=== PATIENT | male | born 1960 | race Caucasian/White ===

== ENCOUNTER 2021-12-09 04:04 | Day surgery (SDCO) | payer MEDICARE ==
[~2021-12-09] VITALS: Ht 180.3 cm; Wt 108.9 kg
[~2021-12-09 04:04] MED LIST: AMIODARONE HCL200 MG PO; ANORO ELLIPTA1 EACH INH; ASPIRIN CHEWABL81 MG PO; ATORVASTATIN PO; BUMEX1 MG PO; CARTIA XT120 MG PO; CHOLESTYRAMINE P4 GM PO; COLESTID1 GM PO; COMBIVENT RESPIM4 GM INH; COREG 6.25MG6.25 MG PO; COZAAR 25MG TAB25 MG PO; CYANOCOBAL1000 MCG/1 IM; DUONEB 2.5-0.5M1 AMP NEB; ELIQUIS5 MG PO; FEOSOL325 MG PO; FOLIC ACID1 MG PO; HYDROXYZINE PA100 MG PO; IBUPROFEN400 MG PO; LEVAQUIN500 MG PO; LOPRESSOR25 MG PO; MAGNESIUM250 M1 PO; METFORMIN HCL500 MG PO; MUCINEX 600MG600 MG PO; NAPROSYN250 MG PO; NEURONTIN300 MG PO; OXY-IR 5MG5 MG PO; PENTOXIFYLLINE400 MG PO; PREDNISONE5 MG PO; PROTONIX 40MG T40 MG PO; ROBITUSSIN W/COD5 ML PO; SENOKOT-S TABL1 EACH PO; SPIRIVA18 MCG PO; UROCIT-K10 MEQ PO; VITAMIN D350 MC3 PO; XARELTO20 MG PO; ZAROXOLYN2.5 MG PO; ZYRTEC10 M3 PO
[2021-12-09 04:30] LABS: BASOPHIL 0.8 % (0-2); EOSINOPHIL 4.4 % (0-5); HCT 35.7 % (42.0-52.0); HGB 11.6 g/dl (13.2-18.0); LYMPHOCYTE 23.9 % (15-48); MCH 31.4 pg (25.0-31.0); MCHC 32.5 g/dL (32.0-36.0); MCV 96.7 fL (78.0-100.0); MONOCYTE 6.3 % (0-12); MPV 11.9 fL (6.0-9.5); NEUTROPHIL 64.2 % (41-80); NRBC 0; PLT 189 K/uL (150-400); RBC 3.69 M/uL (4.70-6.00); RDW 13.9 % (11.5-14.0)
[2021-12-09 05:00] LABS: BUN/CREAT RATIO (CALC) 17.8 RATIO; CREATININE 0.73 mg/dL (0.67-1.17); POTASSIUM 3.6 mmol/L (3.5-5.1)
[2021-12-09 05:05] LABS: CORONAVIRUS 2019 SARS-COV-2 NEGATIVE (NEGATIVE); INFLUENZA A NAA NEGATIVE (NEGATIVE)
[2021-12-09] MEDS ORDERED: VENTOLIN HFA IN18 GM INH (14:39)
--- NOTE | 2021-12-10 05:24 | NUR ---
ONE TIME ORDERS NOT GIVEN DUE TO ADMINISTRATION TIMES AND NEXT SCHEDULED , [facility] NOTIFIED.
[2021-12-10 06:23] LABS: BASOPHIL 0.8 % (0-2); EOSINOPHIL 2.6 % (0-5); HCT 33.4 % (42.0-52.0); HGB 10.8 g/dl (13.2-18.0); LYMPHOCYTE 16.4 % (15-48); MCH 31.4 pg (25.0-31.0); MCHC 32.3 g/dL (32.0-36.0); MCV 97.1 fL (78.0-100.0); MONOCYTE 8.1 % (0-12); NEUTROPHIL 71.7 % (41-80); NRBC 0; PLT 163 K/uL (150-400); RBC 3.44 M/uL (4.70-6.00); RDW 14.1 % (11.5-14.0); WBC 9.5 K/uL (4.0-10.5)
[2021-12-10 06:26] LABS: INR 1.18 (0.9-1.2); PROTHROMBIN TIME 14.4 SECONDS (11.8-13.4)
[2021-12-10 06:50] LABS: BUN/CREAT RATIO (CALC) 13.5 RATIO; CREATININE 0.74 mg/dL (0.67-1.17); POTASSIUM 3.9 mmol/L (3.5-5.1)
[2021-12-10] MEDS ORDERED: LIPITOR40 MG PO (15:24)
[2021-12-10] MEDS ORDERED: LOMOTIL1 EACH PO (15:25)
[2021-12-10] MEDS ORDERED: FEOSOL325 MG PO (15:26)
[2021-12-11 05:53] LABS: BASOPHIL 1.1 % (0-2); EOSINOPHIL 3.2 % (0-5); HCT 34.8 % (42.0-52.0); HGB 11.2 g/dl (13.2-18.0); LYMPHOCYTE 20.7 % (15-48); MCH 31.1 pg (25.0-31.0); MCHC 32.2 g/dL (32.0-36.0); MCV 96.7 fL (78.0-100.0); MONOCYTE 8.9 % (0-12); MPV 11.9 fL (6.0-9.5); NEUTROPHIL 65.6 % (41-80); NRBC 0; PLT 165 K/uL (150-400); RDW 13.9 % (11.5-14.0); WBC 9.4 K/uL (4.0-10.5)
[2021-12-11 08:05] LABS: BUN/CREAT RATIO (CALC) 14.7 RATIO; CREATININE 0.75 mg/dL (0.67-1.17); POTASSIUM 3.5 mmol/L (3.5-5.1)
--- NOTE | 2021-12-11 13:58 | NUR ---
12/11/21 Mr. Duff lives alone. He has 4 children who visit the home. He does not use any DME. [facility] ([phone]) is providing IV Vancy 1.5 gram Q 12 hours, last dose due 01/14/22. [facility] is current and were notified of admission. Please notify [facility] and [facility] if patient discharges over the weekend, [phone].
--- NOTE | 2021-12-11 21:25 | NUR ---
PATIENT STATED THAT HE HAS NOT RECIEVED ALL OF HIS HOME MEDICATIONS. STATED HE TYPICALLY TAKES 16 OR 17 PILLS IN THE AM AND HAS ONLY RECIEVED 7 IN THE MORNINGS. STATED THAT HE OFFERED TO BRING HIS MEDICATIONS IN AND THE NURSES HAVE STATED IT WOULD BE LIKE JUMPING THROUGH HOOPS TO USE THEM. NURSE EDUCATED THE PATIENT ON THE PROCESS OF BRINGING HOME MEDICATIONS. ESCALATED THE ISSUE TO HIS NURSE ON [facility] [place] TO ADDRESS THIS WITH THE [facility]. PATIENT STATED HE BROUGHT IN A LIST OF HIS HOME MEDICATIONS AND THE NURSE REPORTED TO HIM THAT SHE PUT HIS HOME MEDICATIONS IN THE MED REC TAB.
[2021-12-12 05:41] LABS: BASOPHIL 1.2 % (0-2); HCT 36.2 % (42.0-52.0); HGB 11.8 g/dl (13.2-18.0); LYMPHOCYTE 23.4 % (15-48); MCH 31.2 pg (25.0-31.0); MCHC 32.6 g/dL (32.0-36.0); MCV 95.8 fL (78.0-100.0); MONOCYTE 10.7 % (0-12); MPV 11.5 fL (6.0-9.5); NEUTROPHIL 60.2 % (41-80); NRBC 0; PLT 171 K/uL (150-400); RBC 3.78 M/uL (4.70-6.00); RDW 13.9 % (11.5-14.0); WBC 7.6 K/uL (4.0-10.5)
[2021-12-12 06:05] LABS: CREATININE 0.89 mg/dL (0.67-1.17); MAGNESIUM 2.1 mg/dL (1.8-2.4); POTASSIUM 3.5 mmol/L (3.5-5.1)
[2021-12-12] MEDS ORDERED: BUMEX1 MG PO (15:10)
== END 2021-12-12 16:52 | disposition home health service (06) ==
LOC: FER 04:04 → FOFB 07:58 → FMS 07:58
PROVIDERS: Internal Medicine; Internal Medicine Cardiovascular Disease; Nurse Practitioner; ADMIT Internal Medicine
DX: J96.01 Acute respiratory failure with hypoxia (principal); I11.0 Hypertensive heart disease with heart failure; I50.33 Acute on chronic diastolic (congestive) heart failure; I27.20 Pulmonary hypertension, unspecified; I34.0 Nonrheumatic mitral (valve) insufficiency; L08.9 Local infection of the skin and subcutaneous tissue, unspecified; G47.33 Obstructive sleep apnea (adult) (pediatric); I48.0 Paroxysmal atrial fibrillation; J44.9 Chronic obstructive pulmonary disease, unspecified; E11.9 Type 2 diabetes mellitus without complications; C22.8 Malignant neoplasm of liver, primary, unspecified as to type; I25.10 Atherosclerotic heart disease of native coronary artery without angina pectoris; Z87.891 Personal history of nicotine dependence; Z95.1 Presence of aortocoronary bypass graft; Z88.0 Allergy status to penicillin; Z79.82 Long term (current) use of aspirin; Z79.01 Long term (current) use of anticoagulants; Z79.899 Other long term (current) drug therapy; Z20.822 Contact with and (suspected) exposure to COVID-19
CPT/HCPCS: 36415; 36600; 71045; 71046; 71275; 80048; 80061; 80202; 82803; 82962; 83735; 83880; 84145; 84484; 85025; 85610; 93005; 94640; 94664; G0378; J0456; J3370; J7040; J7050; Q9967; U0002

== ENCOUNTER 2022-03-10 10:55 | Emergency (ER) | payer MEDICARE ==
[~2022-03-10 10:55] MED LIST changes: +LIPITOR40 MG PO; +LOMOTIL1 EACH PO; +VENTOLIN HFA IN18 GM INH
[2022-03-10 13:34] LABS: BASOPHIL 1.1 % (0-2); EOSINOPHIL 2.1 % (0-5); HGB 12.4 g/dl (13.2-18.0); LYMPHOCYTE 23.9 % (15-48); MCH 30.6 pg (25.0-31.0); MCHC 32.6 g/dL (32.0-36.0); MCV 93.8 fL (78.0-100.0); MONOCYTE 8.7 % (0-12); MPV 12.9 fL (6.0-9.5); NEUTROPHIL 63.9 % (41-80); NRBC 0; PLT 224 K/uL (150-400); RBC 4.05 M/uL (4.70-6.00); WBC 12.6 K/uL (4.0-10.5)
[2022-03-10 13:38] LABS: BUN/CREAT RATIO (CALC) 20.1 RATIO; CREATININE 1.69 mg/dL (0.67-1.17); POTASSIUM 4.4 mmol/L (3.5-5.1)
[2022-03-10] MEDS ORDERED: ELIQUIS5 MG PO (15:47)
[2022-03-10] MEDS ORDERED: VENTOLIN HFA IN18 GM INH (15:47)
[2022-03-10] MEDS ORDERED: BUMEX1 MG PO (15:48)
[2022-03-10] MEDS ORDERED: BAYER CHEWABLE81 MG PO (15:48)
[2022-03-10] MEDS ORDERED: LIPITOR40 MG PO (15:48)
[2022-03-10] MEDS ORDERED: ZYRTEC10 M3 PO (15:50)
[2022-03-10] MEDS ORDERED: COLESTIPOL HCL1 GM PO (15:50)
[2022-03-10] MEDS ORDERED: FOLIC ACID1 MG PO (15:51)
[2022-03-10] MEDS ORDERED: VITAMIN B-121000 MC1 PO (15:51)
[2022-03-10] MEDS ORDERED: CARDIZEM CD120 MG PO (15:51)
[2022-03-10] MEDS ORDERED: FEOSOL325 MG PO (15:51)
[2022-03-10] MEDS ORDERED: HYDROXYZINE PA100 MG PO (15:52)
[2022-03-10] MEDS ORDERED: MAGNESIUM500 MG PO (15:53)
[2022-03-10] MEDS ORDERED: METFORMIN HCL500 MG PO (15:53)
[2022-03-10] MEDS ORDERED: METOLAZONE 5MG T5 MG PO (15:53)
[2022-03-10] MEDS ORDERED: METOPROLOL TART25 MG PO (15:54)
[2022-03-10] MEDS ORDERED: PACERONE200 MG PO (15:55)
[2022-03-10] MEDS ORDERED: PROTONIX 40MG T40 MG PO (15:56)
[2022-03-10] MEDS ORDERED: KLOR-CON 1010 MEQ PO (15:56)
[2022-03-10] MEDS ORDERED: ANORO ELLIPTA1 EACH PO (15:57)
[2022-03-10] MEDS ORDERED: VITAMIN D350 MC6 PO (15:57)
== END 2022-03-10 20:51 | disposition other institution (70) ==
LOC: FER 10:55
PROVIDERS: Emergency Medicine
DX: T84.89XA Other specified complication of internal orthopedic prosthetic devices, implants and grafts, initial encounter (principal); I10 Essential (primary) hypertension; J44.9 Chronic obstructive pulmonary disease, unspecified; Z95.1 Presence of aortocoronary bypass graft; Z88.0 Allergy status to penicillin; Z20.822 Contact with and (suspected) exposure to COVID-19; Y83.1 Surgical operation with implant of artificial internal device as the cause of abnormal reaction of the patient, or of later complication, without mention of misadventure at the time of the procedure; X50.9XXA Other and unspecified overexertion or strenuous movements or postures, initial encounter; Y93.89 Activity, other specified; Y92.009 Unspecified place in unspecified non-institutional (private) residence as the place of occurrence of the external cause
CPT/HCPCS: 36415; 71045; 73030; 80048; 84484; 85025; 93005; J1170; J2270; J2405; U0002